=== PATIENT | male | born 1950 | race Caucasian/White ===

== ENCOUNTER 2018-03-19 07:36 | Observation (INO) | payer MEDICARE, OTHER ==
[2018-03-19] MEDS ORDERED: SODIUM CHLORIDE 0.9% 500 ML IV STA (07:59)
--- NOTE | 2018-03-19 08:01 | ED ---
General Adult HPI - General Chief complaint: Neuro Symptoms/Deficit Stated complaint: Arm & leg numbness Time Seen by Provider: 03/19/18 07:40 Source: patient, RN notes reviewed Mode of arrival: wheelchair Limitations: no limitations - History of Present Illness Initial comments: This is a 67-year-old male with no significant past medical history. Patient woke up today and had numbness in his left arm and left leg. Patient states he also couldn't coordinate his arms or legs are well. 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 Patient states symptoms lasted between 20 and 30 minutes. Patient denies having any similar symptoms. Patient denies any smoking history. Patient denies any chest pain difficulty breathing or shortness of breath per patient denies any palpitations. Patient denies headache patient denies numbness weakness. Patient denies lightheadedness dizziness or near syncopal episode. Patient states he has not been sick recently. Patient denies any recent fever chills or cough. Currently patient is asymptomatic - Related Data Home Medications Medication Instructions Recorded Confirmed Aspirin EC [Ecotrin] 325 mg PO DAILY PRN 03/19/18 03/19/18 Ibuprofen [Motrin Ib] 400 mg PO Q6H PRN 03/19/18 03/19/18 Multivitamins, Thera [Multivitamin 1 tab PO DAILY 03/19/18 03/19/18 (formulary)] Allergies Allergy/AdvReac Type Severity Reaction Status Date / Time No Known Allergies Allergy Verified 03/19/18 09:23 Review of Systems ROS Statement: Those systems with pertinent positive or pertinent negative responses have been documented in the HPI. ROS Other: All systems not noted in ROS Statement are negative. Past Medical History Past Medical History: No Reported History History of Any Multi-Drug Resistant Organisms: None Reported Past Surgical History: No Surgical Hx Reported Past Psychological History: No Psychological Hx Reported Smoking Status: Former smoker Past Alcohol Use History: None Reported Past Drug Use History: None Reported General Exam - General Exam Comments Initial Comments: GENERAL: Patient is well-developed and well-nourished. Patient is nontoxic and well- hydrated and is in no acute distress. ENT: Neck is soft and supple. No significant lymphadenopathy is noted. Oropharynx is clear. Moist mucous membranes. Neck has full range of motion without eliciting any pain. EYES: The sclera were anicteric and conjunctiva were pink and moist. Extraocular movements were intact and pupils were equal round and reactive to light. Eyelids were unremarkable. PULMONARY: Unlabored respirations. Good breath sounds bilaterally. No audible rales rhonchi or wheezing was noted. CARDIOVASCULAR: There is a regular rate and rhythm without any murmurs gallops or rubs. ABDOMEN: Soft and nontender with normal bowel sounds. No palpable organomegaly was noted. There is no palpable pulsatile mass. SKIN: Skin is clear with no lesions or rashes and otherwise unremarkable. NEUROLOGIC: Patient is alert and oriented x3. Cranial nerves II through XII are grossly intact. Motor and sensory are also intact. Normal speech, volume and content. Symmetrical smile. Cerebellar testing bilaterally. Nose was normal. MUSCULOSKELETAL: Normal extremities with adequate strength and full range of motion. No lower extremity swelling or edema. No calf tenderness. LYMPHATICS: No significant lymphadenopathy is noted PSYCHIATRIC: Normal psychiatric evaluation. Normal interpersonal interactions appears functionally intact in deals appropriately with others. No signs of depression. No signs of anxiety. Limitations: no limitations Course Vital Signs 03/19/18 03/19/18 03/19/18 07:37 08:50 09:00 Temperature 97.2 F L Pulse Rate 58 L 61 58 L Respiratory 18 16 16 Rate Blood Pressure 152/79 143/72 143/83 O2 Sat by Pulse 97 98 98 Oximetry Medical Decision Making - Medical Decision Making EKG shows sinus bradycardia 55 bpm OH interval is 162 QRS is 132 QT interval is 452 QTC is 432. Patient's EKG shows no ST segment elevation or depression. - Lab Data Result diagrams: 03/19/18 07:55 03/19/18 07:55 Lab Results 03/19/18 03/19/18 03/19/18 Range/Units 07:55 07:55 07:55 WBC 4.7 (3.8-10.6) k/uL RBC 4.72 (4.30-5.90) m/uL Hgb 14.2 (13.0-17.5) gm/dL Hct 43.4 (39.0-53.0) % MCV 92.0 (80.0-100.0) fL MCH 30.2 (25.0-35.0) pg MCHC 32.8 (31.0-37.0) g/dL RDW 13.8 (11.5-15.5) % Plt Count 226 (150-450) k/uL Neutrophils % 68 % Lymphocytes % 19 % Monocytes % 6 % Eosinophils % 4 % Basophils % 0 % Neutrophils # 3.2 (1.3-7.7) k/uL Lymphocytes # 0.9 L (1.0-4.8) k/uL Monocytes # 0.3 (0-1.0) k/uL Eosinophils # 0.2 (0-0.7) k/uL Basophils # 0.0 (0-0.2) k/uL PT (9.0-12.0) sec INR (<1.2) APTT (22.0-30.0) sec Sodium 144 (137-145) mmol/L Potassium 4.2 (3.5-5.1) mmol/L Chloride 108 H (98-107) mmol/L Carbon Dioxide 21 L (22-30) mmol/L Anion Gap 15 mmol/L BUN 14 (9-20) mg/dL Creatinine 0.71 (0.66-1.25) mg/dL Est GFR (CKD-EPI)AfAm >90 (>60 ml/min/1.73 sqM) Est GFR (CKD-EPI)NonAf >90 (>60 ml/min/1.73 sqM) Glucose 103 H (74-99) mg/dL Calcium 9.3 (8.4-10.2) mg/dL Total Bilirubin 0.7 (0.2-1.3) mg/dL AST 39 (17-59) U/L ALT 27 (21-72) U/L Alkaline Phosphatase 106 (38-126) U/L Total Creatine Kinase 77 (55-170) U/L CK-MB (CK-2) 0.7 (0.0-2.4) ng/mL CK-MB (CK-2) Rel Index 0.9 Troponin I <0.012 (0.000-0.034) ng/mL Total Protein 7.7 (6.3-8.2) g/dL Albumin 4.1 (3.5-5.0) g/dL 03/19/18 Range/Units 07:55 WBC (3.8-10.6) k/uL RBC (4.30-5.90) m/uL Hgb (13.0-17.5) gm/dL Hct (39.0-53.0) % MCV (80.0-100.0) fL MCH (25.0-35.0) pg MCHC (31.0-37.0) g/dL RDW (11.5-15.5) % Plt Count (150-450) k/uL Neutrophils % % Lymphocytes % % Monocytes % % Eosinophils % % Basophils % % Neutrophils # (1.3-7.7) k/uL Lymphocytes # (1.0-4.8) k/uL Monocytes # (0-1.0) k/uL Eosinophils # (0-0.7) k/uL Basophils # (0-0.2) k/uL PT 10.1 (9.0-12.0) sec INR 1.0 (<1.2) APTT 23.1 (22.0-30.0) sec Sodium (137-145) mmol/L Potassium (3.5-5.1) mmol/L Chloride (98-107) mmol/L Carbon Dioxide (22-30) mmol/L Anion Gap mmol/L BUN (9-20) mg/dL Creatinine (0.66-1.25) mg/dL Est GFR (CKD-EPI)AfAm (>60 ml/min/1.73 sqM) Est GFR (CKD-EPI)NonAf (>60 ml/min/1.73 sqM) Glucose (74-99) mg/dL Calcium (8.4-10.2) mg/dL Total Bilirubin (0.2-1.3) mg/dL AST (17-59) U/L ALT (21-72) U/L Alkaline Phosphatase (38-126) U/L Total Creatine Kinase (55-170) U/L CK-MB (CK-2) (0.0-2.4) ng/mL CK-MB (CK-2) Rel Index Troponin I (0.000-0.034) ng/mL Total Protein (6.3-8.2) g/dL Albumin (3.5-5.0) g/dL Disposition Clinical Impression: Transient cerebral ischemia Disposition: ADMITTED IP TO THIS [facility] Referrals: None,Stated [Primary Care Provider] - 1-2 days Time of Disposition: 10:20
[2018-03-19 08:08] LABS: Basophils % (A) 0 %; Eosinophils # (A) 0.2 k/uL (0-0.7); Eosinophils % (A) 4 %; HCT 43.4 % (39.0-53.0); HGB 14.2 gm/dL (13.0-17.5); Lymphocytes # (A) 0.9 k/uL (1.0-4.8); Lymphocytes % (A) 19 %; MCH 30.2 pg (25.0-35.0); MCHC 32.8 g/dL (31.0-37.0); Mean Platelet Volume 7.3; Monocytes # (A) 0.3 k/uL (0-1.0); Monocytes % (A) 6 %; Neutrophils # (A) 3.2 k/uL (1.3-7.7); Neutrophils % (A) 68 %; Platelet Count 226 k/uL (150-450); RBC 4.72 m/uL (4.30-5.90); RDW 13.8 % (11.5-15.5); WBC 4.7 k/uL (3.8-10.6)
[2018-03-19 08:19] LABS: Partial Thromboplastin Time 23.1 sec (22.0-30.0); Prothrombin Time 10.1 sec (9.0-12.0)
[2018-03-19 08:33] LABS: Creatine Kinase 77 U/L (55-170)
[2018-03-19 08:35] LABS: ALT 27 U/L (21-72); AST 39 U/L (17-59); Albumin 4.1 g/dL (3.5-5.0); Alkaline Phosphatase 106 U/L (38-126); Anion Gap 15 mmol/L; Blood Urea Nitrogen 14 mg/dL (9-20); Calcium 9.3 mg/dL (8.4-10.2); Carbon Dioxide 21 mmol/L (22-30); Chloride 108 mmol/L (98-107); Glucose 103 mg/dL (74-99); Sodium 144 mmol/L (137-145); Total Bilirubin 0.7 mg/dL (0.2-1.3); Total Protein 7.7 g/dL (6.3-8.2)
[2018-03-19 08:36] LABS: Potassium 4.2 mmol/L (3.5-5.1)
[2018-03-19 08:46] LABS: Creatine Kinase MB 0.7 ng/mL (0.0-2.4); Troponin I <0.012 ng/mL (0.000-0.034)
--- NOTE | 2018-03-19 08:47 | XR ---
EXAMINATION TYPE: XR chest 2V DATE OF EXAM: 03/19/2018 COMPARISON: NONE TECHNIQUE: PA and lateral views submitted. HISTORY: altered mental status FINDINGS: The lungs are clear and there is no pneumothorax, pleural effusion, or focal pneumonia. Hypertrophic and degenerative change spine. Biapical pleural thickening. Atherosclerotic change aorta. IMPRESSION: 1. No acute process.
--- NOTE | 2018-03-19 08:50 | CT ---
EXAMINATION TYPE: CT brain wo con for TPA DATE OF EXAM: 03/19/2018 COMPARISON: NONE HISTORY: Lt arm and leg numbness CT DLP: 1115 mGycm Automated exposure control for dose reduction was used. TECHNIQUE: CT scan of the head is performed without contrast. FINDINGS: There is no acute intracranial hemorrhage, mass effect, or midline shift identified. The right middle cerebral artery is slightly hyperdense in comparison to the left on series 3 image 18. This is focal and could be artifactual or related to thrombus. There is no blurring of the basal ganglia or insula r cortex. Wayne-white matter interfaces preserved. No suspicious extra-axial fluid collection is seen. The ventricles and sulci are within normal limits in size. Incidental note is made of a normal varian t very small cavum septum lucidum. Cemt-eo-[id number] mucosal thickening is seen within the ethmoid sin uses. The globes are intact and the remaining visualized sinuses are clear. Mastoid air cells are not ed to be hypoplastic. IMPRESSION: 1. No acute intracranial hemorrhage. 2. Right-sided slightly hyperdense MCA on a single image that could be artifactual or related to thro mbus. No current CT sequela of infarct.
[2018-03-19] MEDS ORDERED: RX INFO: IV CONTRAST WAS GIVEN 1 EACH MISC MISCELLANE PRN (09:13)
--- NOTE | 2018-03-19 10:12 | CT ---
EXAMINATION TYPE: CT angio head neck DATE OF EXAM: 03/19/2018 HISTORY: Lt side numbness COMPARISON: CT brain of the same date CT DLP: 295.2 mGycm. Automated Exposure Control for Dose Reduction was Utilized. TECHNIQUE: CTA scan of the neck is performed with IV Contrast, patient injected with 65 mL of Isovue 370, axial images are obtained, coronal and sagittal reformatted images are reviewed. Three-D recons tructed images are created on an independent workstation and reviewed. FINDINGS: Carotid/Vascular Structures: The M1 segment of the right middle cerebral artery is slightly diminutiv e in comparison to the left, however no occlusion is identified as the branch vessels are patent. No focal outpouching is seen to suggest aneurysm within the intracranial vasculature. The posterior comm unicating arteries are diminutive also and not well-visualized. The vertebral arteries are patent wit h slight dominance on the right. There is a normal conventional 3 vessel branch pattern of the aortic arch. Common carotid arteries an d internal carotid arteries are patent. Minimal nonhemodynamically significant calcific plaquing is s een of the cavernous portion of the left internal carotid artery. Other: Lung apices are well aerated. Upper mediastinum is grossly unremarkable. Thyroid gland is symm etric. No gross evidence of an adenopathy within the cervical spine. Visualized portions of brain are discussed in the CT brain dictation of the same date. IMPRESSION: 1. Right MCA is slightly diminutive in comparison to the left although no occlusion is identified. 2. No evidence of vascular occlusion, dissection, or aneurysmal outpouching.
[2018-03-19] MEDS ORDERED: ASPIRIN 325 MG TAB PO STA (10:20)
--- NOTE | 2018-03-19 10:59 | P.HPIM ---
History of Present Illness H&P Date: 03/19/18 Chief Complaint: Left-sided weakness with numbness and tingling The patient is a [id number] 67-year-old male with no significant past medical history that presented to the ER via private vehicle with chief complaint of left-sided upper and lower extremity weakness with numbness and tingling that began at approximately 6 AM when he woke up this morning, the patient reports he woke up having issues with coordination, having trouble ambulating, reportedly stumbled to the bathroom. He also reported some confusion described as fogginess, he was subsequently then had some left upper and lower extremity weakness with numbness and tingling that apparently resolved 30 minutes later. He denied any slurred speech, headache, blurry vision or facial droop. The patient denied any chest pain palpitations, did report feeling lightheaded denied any shortness of breath. He denied any fall, seizure-like activity or head trauma, the patient denies any history of Smoking. On presentation the patient was noted to be mildly hypertensive with systolic blood pressure 152. He was given aspirin and had a CT of his head that showed a right sided slightly hyperdense MCA, subsequent CTA of the head showed the right MCA was slightly smaller in comparison to the left with no apparent occlusion. He was recommended for admission for TIA with the NIH SS score of 0 Review of Systems All other 12 point review of systems negative except per HPI Past Medical History Past Medical History: No Reported History History of Any Multi-Drug Resistant Organisms: None Reported Past Surgical History: No Surgical Hx Reported Past Psychological History: No Psychological Hx Reported Smoking Status: Former smoker Past Alcohol Use History: None Reported Past Drug Use History: None Reported Medications and Allergies Home Medications Medication Instructions Recorded Confirmed Type Aspirin EC [Ecotrin] 325 mg PO DAILY PRN 03/19/18 03/19/18 History Ibuprofen [Motrin Ib] 400 mg PO Q6H PRN 03/19/18 03/19/18 History Multivitamins, Thera [Multivitamin 1 tab PO DAILY 03/19/18 03/19/18 History (formulary)] Allergies Allergy/AdvReac Type Severity Reaction Status Date / Time No Known Allergies Allergy Verified 03/19/18 09:23 Physical Exam Vitals: Vital Signs Temp Pulse Resp BP Pulse Ox 03/19/18 10:20 73 16 130/80 99 03/19/18 09:00 58 L 16 143/83 98 03/19/18 08:50 61 16 143/72 98 03/19/18 07:37 97.2 F L 58 L 18 152/79 97 Intake and Output 03/18/18 03/19/18 03/19/18 22:59 06:59 14:59 Other: Weight 78.018 kg Constitutional: No acute distress, conversant, pleasant Eyes: Anicteric sclerae, moist conjunctiva, no lid-lag, PERRLA ENMT: NC/AT,Oropharynx clear, no erythema, exudates Neck:Supple, FROM, no masses, or JVD, No carotid bruits; No thyromegaly Lungs: Clear to auscultation, Clear to percussion, Normal respiratory effort, no accessory muscle use Cardiovascular: Heart regular in rate and rhythm, No murmurs, gallops, or rubs no peripheral edema Abdominal: Soft Nontender, nom distended, no guarding, no rebound or rigidity, Normoactive bowel sounds No hepatomegaly, No splenomegaly, No palpable mass No abdominal wall hernia noted Skin: Normal temperature, tone, texture, turgor, No induration No subcutaneous nodules, No rash, lesions, No ulcers Extremities:No digital cyanosis No clubbing, Pedal pulses intact and symmetrical Radial pulses intact and symmetrical Normal gait and station, No calf tenderness Psychiatric: Alert and oriented to person, place and time, Appropriate affect Intact judgement Neuro: Muscles Strength 5/5 in all 4 extremities, Sensation to light touch grossly present throughout, Cranial nerves II-XII grossly intact. No focal sensory deficits Results CBC & Chem 7: 03/19/18 07:55 03/19/18 07:55 Labs: Abnormal Lab Results - Last 24 Hours (Table) 03/19/18 03/19/18 Range/Units 07:55 07:55 Lymphocytes # 0.9 L (1.0-4.8) k/uL Chloride 108 H (98-107) mmol/L Carbon Dioxide 21 L (22-30) mmol/L Glucose 103 H (74-99) mg/dL Assessment and Plan (1) TIA (transient ischemic attack) Current Visit: Yes Status: Acute Code(s): G45.9 - TRANSIENT CEREBRAL ISCHEMIC ATTACK, UNSPECIFIED SNOMED Code(s): 656017355 (2) Elevated blood pressure reading without diagnosis of hypertension Current Visit: Yes Status: Acute Code(s): R03.0 - ELEVATED BLOOD-PRESSURE READING, W/O DIAGNOSIS OF HTN SNOMED Code(s): 005165318 (3) Left-sided weakness Current Visit: Yes Status: Acute Code(s): R53.1 - WEAKNESS SNOMED Code(s) : 691113329 (4) Paresthesias Current Visit: Yes Status: Acute Code(s): R20.2 - PARESTHESIA OF SKIN SNOMED Code(s): 93509061 Plan: The patient is placed on observation on 6 selective after presenting with a TIA with symptoms of left-sided weakness and paresthesias resolving prior to coming to the hospital. He was given aspirin 325 mg per protocol. Neurology has been consulted for further recommendations, CT/CTA negative for any acute intracranial pathology, will continue his workup with carotid Dopplers, echocardiogram, lipid panel. Continue to monitor his blood pressure closely patient does not have a history of hypertension. We'll place him on DVT prophylaxis with SCDs and Lovenox. We'll continue to follow his clinical course
[2018-03-19] MEDS ORDERED: ENOXAPARIN 40 MG/0.4 ML SYRINGE SQ STA (11:05)
--- NOTE | 2018-03-19 12:18 | ECHOF ---
Referral Reason:HTN, TIA MEASUREMENTS -------- HEIGHT: 162.6 cm WEIGHT: 78.0 kg BP: 159/85 IVSd: 1.3 cm (0.6 - 1.1) LVIDd: 5.0 cm (3.9 - 5.3) LVPWd: 0.9 cm (0.6 - 1.1) IVSs: 1.8 cm LVIDs: 2.9 cm LVPWs: 1.4 cm LAESV Index (A-L): 30.07 ml/m Ao Diam: 3.3 cm (2.0 - 3.7) AV Cusp: 2.3 cm (1.5 - 2.6) LA Diam: 3.3 cm (2.7 - 3.8) MV EXCURSION: 24.295 mm (> 18.000) MV EF SLOPE: 171 mm/s (70 - 150) EPSS: 0.8 cm MV E James: 0.75 m/s MV DecT: 154 ms MV A James: 0.90 m/s MV E/A Ratio: 0.83 AR PHT: 1027 ms RAP: 5.00 mmHg RVSP: 10.09 mmHg FINDINGS -------- Sinus rhythm. This was a technically good study. The left ventricular size is normal. There is borderline concentric left ventricular hypertrophy. Overall left ventricular systolic function is normal with, an EF between 55 - 60 %. The right ventricle is normal in size and function. LA is midly dilated 29-33ml/m2. The right atrium is normal in size. Aortic valve is trileaflet and is mildly thickened. The mitral valve leaflets are mildly thickened. Mild mitral regurgitation is present. Mild tricuspid regurgitation present. The right ventricular systolic pressure, as measured by Doppl er, is 10.09mmHg. Pulmonic valve appears structurally normal. The aortic root size is normal. The pericardium is normal. CONCLUSIONS -------- 1. Sinus rhythm. 2. This was a technically good study. 3. The left ventricular size is normal. 4. There is borderline concentric left ventricular hypertrophy. 5. Overall left ventricular systolic function is normal with, an EF between 55 - 60 %. 6. The right ventricle is normal in size and function. 7. LA is midly dilated 29-33ml/m2. 8. The right atrium is normal in size. 9. Aortic valve is trileaflet and is mildly thickened. 10. The mitral valve leaflets are mildly thickened. 11. Mild mitral regurgitation is present. 12. Mild tricuspid regurgitation present. 13. The right ventricular systolic pressure, as measured by Doppler, is 10.09mmHg. 14. Pulmonic valve appears structurally normal. 15. The aortic root size is normal. 16. The pericardium is normal. SILVERSMITH APPRENTICE: Yuliana Carolina RDCS
--- NOTE | 2018-03-19 20:26 | CONS ---
CONSULTATION DATE OF CONSULTATION: 03/19/2018. CHIEF COMPLAINT: Transient ischemic attack. HISTORY OF PRESENT ILLNESS: Mr. Catalan is a pleasant 67-year-old, male, who is being evaluated by the neurology service per the request of Dr. Sifuentes for a transient ischemic attack. The patient states that he woke up early this morning and noticed no abnormalities. He went to the restroom and when he came back to the bedroom, he noted significant dizziness. As soon as he sat down, he noticed numbness and tingling involving his left upper and lower extremities. He also noticed significant weakness on the left side. His symptoms lasted approximately 30 minutes and resolved spontaneously. He denies any previous episodes similar to this. In reviewing his home medications, he does have aspirin daily recorded but he states that he takes that as needed only. He was brought into [facility] for further workup and management. In the emergency room, his blood pressure was slightly elevated with a systolic blood pressure of 152. His blood pressure has improved since his admission. A CT scan of the brain was done which showed evidence of a hyperdense right middle cerebral artery. A CT angiogram was done of the brain which showed diminished right middle cerebral artery, but no occlusion was seen. His 2D echocardiogram showed no significant abnormalities. His CBC, INR, cardiac enzymes and comprehensive metabolic profile were normal. At the time of my evaluation, the patient is resting in his bed and appears to be in no acute distress. He denies any recurrence of any neurological symptoms since his admission. He has been started on aspirin 325 mg daily. PAST MEDICAL HISTORY: None. PAST SURGICAL HISTORY: None. SOCIAL HISTORY: The patient quit smoking over 30 years ago. He denies any alcohol or drug use. FAMILY HISTORY: Noncontributory. HOME MEDICATIONS: Reviewed in the chart. ALLERGIES: No known drug allergies. REVIEW OF SYSTEM: CONSTITUTIONAL: Negative. EYES: Negative. ENT: Negative. CARDIOVASCULAR: Negative. RESPIRATORY: Negative. NEUROLOGICAL: As mentioned above. GASTROINTESTINAL: Negative. GENITOURINARY: Negative. DERMATOLOGICAL: Negative. MUSCULOSKELETAL: Negative. DERMATOLOGICAL: Negative. PSYCHIATRIC: Negative. ENDOCRINE: Negative. PHYSICAL EXAM: Vital signs show a temperature of 98.5, pulse 80, respiration 18, blood pressure 121/80. GENERAL APPEARANCE: The patient is a well-developed male who appears to be in no acute distress. HEENT: Normocephalic, atraumatic, no facial asymmetry is seen. Extraocular muscles are intact. NECK: Supple with no masses felt. CARDIOVASCULAR: Regular rate and rhythm. ABDOMEN: Nontender, nondistended. EXTREMITIES: Showed no edema or clubbing. NEUROLOGICAL EXAM: The patient is alert aware and oriented x3. Speech and language are normal. Strength is full in all 4 extremities. Sensory exam was normal to light touch in all 4 extremities. No tremors or seizure-like activity is seen. No pronator drift is present. No dysdiadochokinesia is noticed. No facial asymmetry is seen on cranial nerve testing. IMPRESSION: 1. Transient ischemic attack. 2. Left-sided numbness, resolved. 3. Left-sided weakness, resolved. 4. Dizziness, resolved. RECOMMENDATION: The patient does appear to have suffered a transient ischemic attack with a transient episode of left hemiparesis and sensory deficit. His symptoms continue to be resolved at this time. I will keep him on aspirin 325 mg daily as he was not taken this regiment on a daily basis. I will order a carotid Doppler, fasting lipid panel, EEG, and serum homocystine level. Continue IV hydration as tolerated. Continue monitoring his blood pressure to consider starting any antihypertensive medications. As for his CT brain and CT angiogram of the brain findings, I do recommend that the patient be evaluated by a neuro interventionalist to see if any stenting is required. I will continue to follow with you. Further recommendations to follow. Thank you for allowing me to participate in the care of your patient. If you have any questions, please feel free to contact me. MMODL / IJN: [id number] /
[2018-03-20 07:08] LABS: Cholesterol 199 mg/dL (<200); HDL Cholesterol 32 mg/dL (40-60); LDL Cholesterol,Calculated 145 mg/dL (0-99); Triglycerides 108 mg/dL (<150)
[2018-03-20 08:54] VITALS: RESP 16; TEMP 97.9
[2018-03-20] MEDS ORDERED: ASPIRIN 325 MG TAB PO SCH ×2 (09:00→09:10)
[2018-03-20 11:48] VITALS: BP 130/83; PULSE 67
[2018-03-20] MEDS ORDERED: ATORVASTATIN 10 MG TAB PO SCH (12:45)
--- NOTE | 2018-03-20 13:06 | P.DS ---
Providers Date of admission: 03/19/18 10:27 Expected date of discharge: 03/20/18 Attending physician: Maico Mccarthy MD Consults: 03/19/18 10:21 Consult Physician Routine Consulting Provider: Kushal Simmons Consult Reason/Comments: TIA Do you want consulting provider notified?: Yes Primary care physician: Stated None - Discharge Diagnosis(es) (1) TIA (transient ischemic attack) Current Visit: Yes Status: Acute (2) Elevated blood pressure reading without diagnosis of hypertension Current Visit: Yes Status: Acute (3) Left-sided weakness Current Visit: Yes Status: Acute (4) Paresthesias Current Visit: Yes Status: Acute (5) Hyperlipidemia Current Visit: Yes Status: Acute Hospital Course: The patient is a 67-year-old male that presented to the ER and was admitted for a TIA after he had symptoms of left upper and lower extremity weakness and tingling that resolved prior to his admission here. He had a CT angiogram of the head and neck that showed a slight narrowing of the right MCA in comparison to the left with no noted occlusion. The patient was seen by urology Dr. Simmons who recommended neurosurgical interventional consultation. The patient was started on daily aspirin 325 mg by mouth daily, and Lipitor 10 mg by mouth daily given his elevated LDL at 145. His echocardiogram showed an ejection fraction of 55-60% without any worrying structural abnormalities. The patient was presented as a healthy and had some elevated blood pressure on presentation this resolved without any medicinal intervention. The office services coordinator consulted Dr. Campbell Wilkins in [facility] who reviewed the patient's imaging studies and recommended further testing with plans for transfer to the [place] and is agreeable to accept the patient. Subsequently transferred in stable condition for continuing his workup. This discharge process took approximately 30 minutes. Plan - Discharge Summary Discharge Rx Participant: Yes New Discharge Prescriptions: No Action Multivitamins, Thera [Multivitamin (formulary)] 1 tab PO DAILY Ibuprofen [Motrin Ib] 400 mg PO Q6H PRN PRN Reason: Pain Aspirin EC [Ecotrin] 325 mg PO DAILY PRN PRN Reason: Pain Discharge Medication List Aspirin EC [Ecotrin] 325 mg PO DAILY PRN 03/19/18 [History] Ibuprofen [Motrin Ib] 400 mg PO Q6H PRN 03/19/18 [History] Multivitamins, Thera [Multivitamin (formulary)] 1 tab PO DAILY 03/19/18 [History ] Follow up Appointment(s)/Referral(s): Kushal Simmons MD [STAFF PHYSICIAN] - 2 Weeks None,Stated [Primary Care Provider] - 1-2 days Patient Instructions/Handouts: Transient Ischemic Attack (DC) Discharge Disposition: DISCH/TRANS TO A [facility]
--- NOTE | 2018-03-20 18:54 | EEG ---
ELECTROENCEPHALOGRAM REPORT DATE OF SERVICE: 03/20/2018 REASON FOR TESTING: Transient ischemic attack. DESCRIPTION OF THE PROCEDURE: This EEG was performed using a 21-channel digital electroencephalograph, following international 10-20 system. DESCRIPTION OF THE RECORDING: From the beginning of the tracing, and with the patient's eyes closed, the background rhythm was mostly consisting of 9 Hz alpha frequency in the posterior occipital leads. No obvious asymmetry is seen. Photic stimulation was performed with a minimal driving response seen. No pathological waves were elicited. Hyperventilation was not performed. The patient does reach stage II of sleep during the tracing and occasional K complexes are seen. No epileptiform discharges were seen. His EKG lead showed a regular rate and rhythm. INTERPRETATION: This asleep and awake EEG can be considered within normal limits. There was no asymmetry seen. No epileptiform discharges were noticed. The absence of epileptiform discharges does not rule out the diagnosis of epilepsy; therefore clinical correlation is recommended. TIMO / MARBELLA: [id number] /
== END 2018-03-20 17:05 | disposition other institution (70) ==
LOC: EC 07:36 → 6SEL 10:27
PROVIDERS: ADMIT Family Medicine; ATTEND Family Medicine
DX: G45.9 Transient cerebral ischemic attack, unspecified (principal); R03.0 Elevated blood-pressure reading, without diagnosis of hypertension; E78.5 Hyperlipidemia, unspecified; Z87.891 Personal history of nicotine dependence
CPT/HCPCS: 99285; 96372 ×2; 96360 ×2; 36415; 94760; 95819; 93005; 93306; 97161; 97165; 80061; 80053; 82550; 82553; 84484; 85025; 85610; 85730; 83090; 71046; 70496; 70450; 70498; G0378 ×2; J1650; Q9967